=== PATIENT | male | born 1970 | race African-American/Black ===

== ENCOUNTER 2017-08-15 09:57 | Day surgery (SDC) | payer BC ==
[2017-08-15 10:46] VITALS: BMI 41.6
[2017-08-15] MEDS ORDERED: LIDOCAINE HCL/PF 2% SDV 5ML VIAL ONE (11:00)
[2017-08-15] MEDS ORDERED: PROPOFOL 20 ML ONE ×5 (11:00)
[2017-08-15 11:59] VITALS: TEMP 97.5
--- NOTE | 2017-08-15 12:01 | PROC ---
Endoscopy Procedure Endoscopy procedure completed. Please see scanned procedure report.
[2017-08-15 12:55] VITALS: BP 120/74; PULSE 60
== END 2017-08-15 12:59 | disposition home or self-care (01) ==
LOC: JASU-ENDO 09:57
PROVIDERS: ATTEND Internal Medicine Gastroenterology
PROC: 0DJD8ZZ Inspection of Lower Intestinal Tract, Via Natural or Artificial Opening Endoscopic (ICD-10-PCS; principal; 2017-08-15 11:30)
DX: Z51.11 Encounter for antineoplastic chemotherapy (principal); Z86.010 Personal history of colon polyps; K64.8 Other hemorrhoids

== ENCOUNTER 2022-07-05 08:00 | Inpatient (IN) | payer BC ==
[2022-06-30 12:14] VITALS: BMI 45.6
[2022-07-05] MEDS ORDERED: BUPIVACAINE HCL/PF 2.5 MG/ML - 30 ML VIAL IJ ONE (09:17)
[2022-07-05] MEDS ORDERED: ONDANSETRON 4 MG/2 ML VIAL IVPUSH PRN (09:18)
[2022-07-05] MEDS ORDERED: PROMETHAZINE HCL 25 MG/1 ML VIAL IVPB PRN (09:18)
[2022-07-05] MEDS ORDERED: LACTATED RINGERS SOLUTION 1,000 ML IV SCH (09:30)
[2022-07-05] MEDS ORDERED: LIDOCAINE HCL/PF 2% SDV 5ML VIAL ONE (09:40)
[2022-07-05] MEDS ORDERED: MIDAZOLAM HCL 2 MG/2 ML SINGLE DOSE VIAL ONE (09:40)
[2022-07-05] MEDS ORDERED: ceFAZolin SODIUM 1 GM VIAL ONE (09:40)
[2022-07-05] MEDS ORDERED: SODIUM CHLORIDE 0.9% P/F 10 ML VIAL IJ ONE (09:40)
[2022-07-05] MEDS ORDERED: PROPOFOL 20 ML ONE ×3 (09:40→11:57)
[2022-07-05] MEDS ORDERED: ROCURONIUM BROMIDE 50 MG/5 ML SYRINGE ONE ×2 (09:40→10:56)
[2022-07-05] MEDS ORDERED: DEXAMETHASONE SOD PHOSPHATE 4 MG/1 ML VIAL ONE (10:26)
[2022-07-05] MEDS ORDERED: ONDANSETRON 4 MG/2 ML VIAL ONE ×2 (10:26→13:48)
[2022-07-05] MEDS ORDERED: SCOPOLAMINE HYDROBROMIDE 1 PATCH PATCH.TD72 ONE (10:47)
[2022-07-05] MEDS ORDERED: GLYCOPYRROLATE 0.2 MG/1 ML VIAL ONE ×2 (10:47→11:26)
[2022-07-05] MEDS ORDERED: NEOSTIGMINE METHYLSULFATE 0.5 MG/1 ML - 10 ML MDV ONE (11:27)
[2022-07-05] MEDS ORDERED: METOPROLOL TARTRATE 5 MG/5 ML VIAL ONE (11:43)
[2022-07-05] MEDS ORDERED: hydrALAZINE HCL 20 MG/ML VIAL ONE (11:57)
[2022-07-05] MEDS ORDERED: HYDROmorphone HCl 2 MG/ML VIAL IVPB PRN (12:28)
[2022-07-05] MEDS: ONDANSETRON 4 MG/2 ML VIAL IVPUSH PRN ×2 (12:50→16:54)
[2022-07-05] MEDS: METOCLOPRAMIDE HCL INJECTION 10 MG/2 ML VIAL IVPUSH SCH ×3 (13:03→19:30)
[2022-07-05 13:18] LABS: ALBUMIN 3.9 g/dl (3.4-5.0); BILIRUBIN,TOTAL 0.7 mg/dl (0.2-1); CALCIUM 8.9 mg/dl (8.5-10); CREATININE 1.1 mg/dl (0.55-1.3); TOT PROT 6.7 g/dl (6.4-8.2)
[2022-07-05] MEDS: SODIUM CHLORIDE 1,000 ML IV SCH (13:20)
[2022-07-05] MEDS ORDERED: METOCLOPRAMIDE HCL INJECTION 10 MG/2 ML VIAL ONE (14:02)
[2022-07-05] MEDS ORDERED: FENTANYL CITRATE/PF 50 MCG/ML VIAL ONE (14:08)
[2022-07-05] MEDS: HYDROmorphone HCl 2 MG/ML VIAL IVPB PRN ×2 (14:24→18:33)
[2022-07-05 19:11] VITALS: RESP 18
[2022-07-05] MEDS: FAMOTIDINE 20 MG/50 ML IVPB 20 MG/50 ML MG IVPB SCH (21:23)
[2022-07-06] MEDS: METOCLOPRAMIDE HCL INJECTION 10 MG/2 ML VIAL IVPUSH SCH ×3 (00:45→12:07)
[2022-07-06] MEDS: ONDANSETRON 4 MG/2 ML VIAL IVPUSH PRN (01:46)
[2022-07-06] MEDS: FAMOTIDINE 20 MG/50 ML IVPB 20 MG/50 ML MG IVPB SCH (09:35)
[2022-07-06 10:30] VITALS: TEMP 98.8
[2022-07-06] MEDS ORDERED: ACETAMINOPHEN 325 MG TABLET (FP) PO ONE (11:23)
[2022-07-06 12:05] LABS: ALBUMIN 3.8 g/dl (3.4-5.0); CALCIUM 8.6 mg/dl (8.5-10); CREATININE 0.9 mg/dl (0.55-1.3); TOT PROT 6.9 g/dl (6.4-8.2)
[2022-07-06] MEDS: SODIUM CHLORIDE 1,000 ML IV SCH (12:07)
[2022-07-06 13:51] LABS: HEMATOCRIT 45.1 % (35.4-49); HEMOGLOBIN 14.6 GM/dL (11.7-16.9); MCH 23.1 pg (25.7-33.7); MCHC 32.4 g/dl (32.0-35.9); MEAN CELL VOLUME 71.3 fl (80-96); MEAN PLT VOLUME 8.3 fl (7.5-11.1); PLATELET COUNT 244 10^3/uL (134-434); RBC 6.32 M/mm3 (4.00-5.60); RDW 14.9 % (11.9-15.9); WHITE BLOOD COUNT 14.1 K/mm3 (4.0-10.0)
[2022-07-06 14:17] VITALS: BP 180/92; PULSE 105
== END 2022-07-06 18:28 | disposition home or self-care (01) | DRG 621 ==
LOC: FM/S 08:32
PROVIDERS: ADMIT Surgery; ATTEND Surgery
PROC: 0FB24ZX Excision of Left Lobe Liver, Percutaneous Endoscopic Approach, Diagnostic (ICD-10-PCS; 2022-07-05)
PROC: 0DJ04ZZ Inspection of Upper Intestinal Tract, Percutaneous Endoscopic Approach (ICD-10-PCS; 2022-07-05)
PROC: 0DB64Z3 Excision of Stomach, Percutaneous Endoscopic Approach, Vertical (ICD-10-PCS; principal; 2022-07-05 10:38)
DX: E66.01 Morbid (severe) obesity due to excess calories (principal); Z68.41 Body mass index [BMI] 40.0-44.9, adult; I87.2 Venous insufficiency (chronic) (peripheral); E29.1 Testicular hypofunction; I10 Essential (primary) hypertension; R16.0 Hepatomegaly, not elsewhere classified
CPT/HCPCS: 36415; 74240-TC-FY; 80053; 85027; 88307-TC; 94760

== ENCOUNTER 2023-11-21 04:25 | Day surgery (SDC) | payer BC ==
[2023-11-17 14:03] VITALS: BMI 40.4
[2023-11-21 12:16] VITALS: RESP 16
[2023-11-21] MEDS ORDERED: MIDAZOLAM HCL 2 MG/2 ML SINGLE DOSE VIAL ONE (16:28)
[2023-11-21 17:09] VITALS: TEMP 97.8
[2023-11-21 18:06] VITALS: BP 132/76; PULSE 76
== END 2023-11-21 18:26 | disposition home or self-care (01) ==
LOC: JASU-SURG 04:25
PROVIDERS: ATTEND Urology
PROC: 0TF3XZZ Fragmentation in Right Kidney Pelvis, External Approach (ICD-10-PCS; principal; 2023-11-21 16:36)
DX: N20.0 Calculus of kidney (principal)